=== PATIENT | male | born 1975 | race Caucasian/White ===

== ENCOUNTER 2017-10-01 00:17 | Emergency (ER) | payer OTHER ==
[~2017-10-01] VITALS: Ht 185.4 cm; Wt 110.0 kg
[~2017-10-01 00:17] MED LIST: CYCL-36 PO; DICL-86 PO; IBUP400T20 PO; LORT5TAB PO
[2017-10-01 00:22] VITALS: BP 152/94; PULSE 100; RESP 16; TEMP 99.1; O2SAT 97
[2017-10-01] MEDS ORDERED: ONDANSETRON ODT 4 MG TAB PO ONE (01:00)
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
[2017-10-01] MEDS ORDERED: ZOFR4TAB PO (01:54)
[2017-10-01] MEDS ORDERED: KETOROLAC TROMETHAMINE 60 MG/2 ML (IM) VIAL IM ONE (02:00)
[2017-10-01] MEDS ORDERED: IBUP1TAB7 PO (02:36)
== END 2017-10-01 02:44 | disposition home or self-care (01) ==
LOC: NEPD 00:17
DX: S09.90XA Unspecified injury of head, initial encounter (principal); S16.1XXA Strain of muscle, fascia and tendon at neck level, initial encounter; S00.83XA Contusion of other part of head, initial encounter; R42 Dizziness and giddiness; Z79.899 Other long term (current) drug therapy; Y04.2XXA Assault by strike against or bumped into by another person, initial encounter
CPT/HCPCS: 70450; 70486; 72100; 72125; 96372; 99284; J1885